=== PATIENT | male | born 1940 | race Caucasian/White ===

== ENCOUNTER 2022-01-30 12:14 | Observation (INO) | payer MEDICARE, BC ==
[2022-01-30 13:05] LABS: #Basophils 0.1 10x3/uL (0.0-0.2); #Eosinphils 0.4 10x3/uL (0.0-0.5); #Monocytes 0.8 10x3/uL (0.0-1.1); #Neutrophils 3.3 10x3/uL (1.5-8.4); %Basophils 1.2 % (0.0-2.0); %Eosinophils 6.2 % (0.0-6.0); %Lymphocytes 27.4 % (18.0-47.0); %Monocytes 13.1 % (0.0-10.0); %Neutrophils 51.8 % (40.0-75.0); Hemoglobin 12.7 g/dL (13.5-17.5); Mean Corpuscular Hemoglobin 30.4 pg (27.0-33.0); Mean Corpuscular Volume 89.2 fl (81.2-95.1); Mean Platelet Volume 10.7 fl (7.4-10.4); Platelet Count 238 10x3/uL (130-400); RBC Distribution Width 13.2 % (11.5-14.5); Red Blood Cell (RBC) Count 4.18 10x6/uL (4.32-5.72); White Blood Cell (WBC) Count 6.4 10x3/uL (3.5-10.5)
[2022-01-30 13:21] LABS: ALT (SGPT) 20 U/L (8-55); AST (SGOT) 21 U/L (5-34); Albumin 4.1 g/dL (3.4-4.8); Alkaline Phosphatase 49 U/L (40-110); Anion Gap 14 mmol/L (10-20); BUN (Urea Nitrogen) 23 mg/dL (8.4-25.7); Bilirubin, Total 0.6 mg/dL (0.2-1.2); Calc. Creatinine Clearance 0 mL/min (70-130); Calcium 9.5 mg/dL (7.8-10.44); Carbon Dioxide 24 mmol/L (23-31); Chloride 102 mmol/L (98-107); Estimated GFR 52; Globulin 2.6 g/dL (2.4-3.5); Glucose 96 mg/dL (83-110); Potassium 4.5 mmol/L (3.5-5.1); Protein, Total 6.7 g/dL (5.8-8.1); Sodium 135 mmol/L (136-145)
[2022-01-30 13:42] LABS: CKMB 2.5 ng/mL (0-6.6)
[2022-01-30 14:20] LABS: Magnesium 2.2 mg/dL (1.6-2.6)
[2022-01-30 15:40] LABS: Bilirubin Neg (Negative); Blood, Urine Negative (Negative); Clarity Clear (Clear); Glucose, Urine (Dipstick) Normal (Negative); Ketone, Urine Negative (Negative); Leukocyte Negative (Negative); Nitrite Negative (Negative); Protein, Urine (Dipstick) Negative (Neg-Trace); Specific Gravity, Urine 1.015 (1.005-1.030); Urobilinogen Normal mg/dL (Less than 2)
[2022-01-30] MEDS ORDERED: Ondansetron ODT 4 MG TAB PO PRN (15:53)
[2022-01-30] MEDS ORDERED: Ondansetron PF 4 MG/2 ML Vial IVP PRN (15:53)
[2022-01-30] MEDS ORDERED: Acetaminophen 325 MG TAB PO PRN (15:53)
[2022-01-30 16:14] LABS: Magnesium 2.2 mg/dL (1.6-2.6)
[2022-01-30] MEDS ORDERED: FLU VACC QS2022-23(65YR UP)/PF 240 MCG/0.7 ML SYRINGE IM ONE (20:30)
[2022-01-30] MEDS ORDERED: Sodium Chloride 0.9% 1,000 ML ONE (20:59)
[2022-01-30] MEDS ORDERED: Atorvastatin Calcium 20 MG TAB PO SCH (21:00)
[2022-01-30] MEDS: Sodium Chloride 0.9% 1,000 ML IV SCH (21:19)
[2022-01-31 03:20] VITALS: BMI 31.0
[2022-01-31 06:44] LABS: #Basophils 0.1 10x3/uL (0.0-0.2); #Eosinphils 0.4 10x3/uL (0.0-0.5); #Monocytes 0.7 10x3/uL (0.0-1.1); #Neutrophils 3.3 10x3/uL (1.5-8.4); %Basophils 0.9 % (0.0-2.0); %Eosinophils 6.7 % (0.0-6.0); %Lymphocytes 30.4 % (18.0-47.0); %Neutrophils 50.7 % (40.0-75.0); Hemoglobin 12.6 g/dL (13.5-17.5); Mean Corpuscular HGB CONC 34.1 g/dL (32.0-36.0); Mean Corpuscular Hemoglobin 30.7 pg (27.0-33.0); Mean Corpuscular Volume 89.8 fl (81.2-95.1); Mean Platelet Volume 11.4 fl (7.4-10.4); Platelet Count 244 10x3/uL (150-450); Red Blood Cell (RBC) Count 4.11 10x6/uL (4.32-5.72); White Blood Cell (WBC) Count 6.5 10x3/uL (3.5-10.5)
[2022-01-31 06:53] LABS: Anion Gap 12 mmol/L (10-20); BUN (Urea Nitrogen) 17 mg/dL (8.4-25.7); Calc. Creatinine Clearance 69 mL/min (70-130); Calcium 9.2 mg/dL (7.8-10.44); Carbon Dioxide 24 mmol/L (23-31); Chloride 108 mmol/L (98-107); Estimated GFR 58; Glucose 87 mg/dL (83-110); Potassium 4.3 mmol/L (3.5-5.1); Sodium 140 mmol/L (136-145)
[2022-01-31] MEDS ORDERED: hydrALAZINE 20 MG/ML VIAL SLOW IVP PRN (07:56)
[2022-01-31] MEDS ORDERED: hydrALAZINE 25 MG TAB PO SCH (09:00)
[2022-01-31] MEDS ORDERED: Finasteride 5 MG TAB PO SCH (09:00)
[2022-01-31] MEDS ORDERED: Lisinopril 20 MG TAB PO SCH (09:00)
[2022-01-31] MEDS ORDERED: Amlodipine 10 MG TAB PO SCH (09:00)
[2022-01-31] MEDS ORDERED: Aspirin 81 mg Enteric Coated Tablet PO SCH (09:00)
[2022-01-31] MEDS: Sodium Chloride 0.9% 1,000 ML IV SCH (11:06)
[2022-01-31 11:36] VITALS: BP 157/74; TEMP 97.8
== END 2022-01-31 12:00 | disposition home or self-care (01) ==
LOC: CSHERS 12:14 → CSHTELE 18:39
PROVIDERS: ADMIT Family Medicine; ATTEND Internal Medicine
DX: R55 Syncope and collapse (principal); R42 Dizziness and giddiness; R00.1 Bradycardia, unspecified; E78.5 Hyperlipidemia, unspecified; K21.9 Gastro-esophageal reflux disease without esophagitis; I12.9 Hypertensive chronic kidney disease with stage 1 through stage 4 chronic kidney disease, or unspecified chronic kidney disease; N18.9 Chronic kidney disease, unspecified; I25.10 Atherosclerotic heart disease of native coronary artery without angina pectoris; M10.9 Gout, unspecified; N40.0 Benign prostatic hyperplasia without lower urinary tract symptoms; Z79.82 Long term (current) use of aspirin; Z79.899 Other long term (current) drug therapy; Z95.5 Presence of coronary angioplasty implant and graft; Z98.890 Other specified postprocedural states; Z87.891 Personal history of nicotine dependence
CPT/HCPCS: 71045; 80048; 81003; 82553; 83605; 83735; 83880; 84484; 85025; 93005; 96360; 96361; 99285; G0378 ×3; U0003; U0005; 36415; 80053; 84443; J7050

== ENCOUNTER 2022-04-04 12:23 | Outpatient (CLI) | payer MEDICARE, BC ==
[2022-04-04 13:37] LABS: Hemoglobin 12.4 g/dL (13.5-17.5); Mean Corpuscular HGB CONC 33.6 g/dL (32.0-36.0); Mean Corpuscular Hemoglobin 30.1 pg (27.0-33.0); Mean Corpuscular Volume 89.6 fl (81.2-95.1); Mean Platelet Volume 10.3 fl (7.4-10.4); Platelet Count 345 10x3/uL (150-450); Red Blood Cell (RBC) Count 4.12 10x6/uL (4.32-5.72); White Blood Cell (WBC) Count 5.3 10x3/uL (3.5-10.5)
[2022-04-04 13:47] LABS: PTT 29.6 sec (22.0-33.0); Prothrombin Time 11.2 sec (9.5-12.1)
[2022-04-04 13:48] LABS: Anion Gap 12 mmol/L (10-20); BUN (Urea Nitrogen) 18 mg/dL (8.4-25.7); Calc. Creatinine Clearance 0 mL/min (70-130); Calcium 9.4 mg/dL (7.8-10.44); Carbon Dioxide 22 mmol/L (23-31); Chloride 103 mmol/L (98-107); Estimated GFR 58; Glucose 99 mg/dL (83-110); Potassium 4.4 mmol/L (3.5-5.1); Sodium 133 mmol/L (136-145)
== END 2022-04-04 12:24 | disposition home or self-care (01) ==
LOC: CSHLAB 12:23
PROVIDERS: ATTEND Specialist
DX: Z01.818 Encounter for other preprocedural examination (principal); I25.10 Atherosclerotic heart disease of native coronary artery without angina pectoris
CPT/HCPCS: 80048; 85027; 85610; 85730; 93005; 93010

== ENCOUNTER → 2022-04-06 | Day surgery (SDC) | payer MEDICARE, BC ==
[~2022-04-06] MED LIST: Acetylcysteine 800 MG/4 ML VIAL ONE; Adenosine 6 MG/2 ML VIAL ONE; Bivalirudin 250 MG VIAL ONE; Fentanyl 100 MCG/2 ML VIAL ONE; Heparin 10,000 UNITS/ 10 ML VIAL ONE; Iopamidol 300 61% 100 ML VIAL FS ONE; Lidocaine 1% (PF) 30 ML VIAL ONE; Midazolam HCl 2 mg/2 ml Vial ONE; Nitroglycerin 50 MG/250 ML BOT 250 ML ONE; Verapamil 5 MG/2 ML VIAL ONE
== END ==
LOC: CSHSDC 06:58
PROVIDERS: ATTEND Specialist
DX: I25.10 Atherosclerotic heart disease of native coronary artery without angina pectoris (principal); I25.5 Ischemic cardiomyopathy
CPT/HCPCS: 85347 ×2; 92921; 92978; 93454; C1725; C1753; C1760; C1769; C1874 ×2; C1887 ×2; C9600; 92928; 99152; 99153; J0153; J0583; J1644; J2001; J2250; J3010; Q9967

== ENCOUNTER 2022-07-02 22:43 | Inpatient (IN) | payer MEDICARE, BC ==
[2022-07-02 23:51] LABS: #Basophils 0.1 10x3/uL (0.0-0.2); #Eosinphils 0.6 10x3/uL (0.0-0.5); #Monocytes 0.6 10x3/uL (0.0-1.1); #Neutrophils 2.9 10x3/uL (1.5-8.4); %Basophils 1.3 % (0.0-2.0); %Eosinophils 10.8 % (0.0-6.0); %Lymphocytes 22.1 % (18.0-47.0); %Monocytes 11.7 % (0.0-10.0); %Neutrophils 53.9 % (40.0-75.0); Hemoglobin 12.8 g/dL (13.5-17.5); Mean Corpuscular HGB CONC 33.4 g/dL (32.0-36.0); Mean Corpuscular Hemoglobin 29.6 pg (27.0-33.0); Mean Corpuscular Volume 88.7 fl (81.2-95.1); Platelet Count 220 10x3/uL (150-450); RBC Distribution Width 14.6 % (11.5-14.5); Red Blood Cell (RBC) Count 4.32 10x6/uL (4.32-5.72); White Blood Cell (WBC) Count 5.4 10x3/uL (3.5-10.5)
[2022-07-03 00:01] LABS: ALT (SGPT) 17 U/L (8-55); AST (SGOT) 19 U/L (5-34); Albumin 3.9 g/dL (3.4-4.8); Alkaline Phosphatase 50 U/L (40-110); Anion Gap 14 mmol/L (10-20); BUN (Urea Nitrogen) 17 mg/dL (8.4-25.7); Bilirubin, Total 0.4 mg/dL (0.2-1.2); Calc. Creatinine Clearance 0 mL/min (70-130); Calcium 9.5 mg/dL (7.8-10.44); Carbon Dioxide 26 mmol/L (23-31); Chloride 103 mmol/L (98-107); Estimated GFR 55; Globulin 2.8 g/dL (2.4-3.5); Glucose 101 mg/dL (83-110); Potassium 4.5 mmol/L (3.5-5.1); Protein, Total 6.7 g/dL (5.8-8.1); Sodium 138 mmol/L (136-145)
[2022-07-03 00:03] LABS: INR-International Normal Ratio 1.1; PTT 28.4 sec (22.0-33.0); Prothrombin Time 11.4 sec (9.5-12.1)
[2022-07-03] MEDS ORDERED: Lidocaine Viscous Sol 2% 15 ml UD Cup ONE (00:22)
[2022-07-03] MEDS ORDERED: Ondansetron PF 4 MG/2 ML Vial IVP PRN (01:27)
[2022-07-03] MEDS ORDERED: Calcium Carbonate 500 MG ChewTAB PO PRN (01:27)
[2022-07-03] MEDS ORDERED: Guaifenesin DM 100-10/5 ML UDCUP PO PRN (01:27)
[2022-07-03] MEDS ORDERED: Senokot S 8.6-50 MG TAB PO PRN (01:27)
[2022-07-03] MEDS ORDERED: HYDROcodone/Acetaminophen 5/325 mg Tablet PO PRN (01:27)
[2022-07-03] MEDS ORDERED: Acetaminophen 325 MG TAB PO PRN (01:27)
[2022-07-03] MEDS ORDERED: Fluticasone Propionate Nasal Spray 16 gm Bottle NASAL PRN (01:30)
[2022-07-03] MEDS ORDERED: Oxybutynin 5 MG TAB PO PRN (01:35)
[2022-07-03] MEDS ORDERED: tiZANidine HCl 4 MG TAB PO SCH ×2 (02:30→21:00)
[2022-07-03 02:58] LABS: #Basophils 0.1 10x3/uL (0.0-0.2); #Eosinphils 0.5 10x3/uL (0.0-0.5); #Monocytes 0.6 10x3/uL (0.0-1.1); #Neutrophils 2.6 10x3/uL (1.5-8.4); %Eosinophils 9.1 % (0.0-6.0); %Neutrophils 50.7 % (40.0-75.0); Hemoglobin 11.7 g/dL (13.5-17.5); Mean Corpuscular HGB CONC 33.7 g/dL (32.0-36.0); Mean Corpuscular Hemoglobin 29.8 pg (27.0-33.0); Mean Corpuscular Volume 88.5 fl (81.2-95.1); Mean Platelet Volume 10.8 fl (7.4-10.4); Platelet Count 207 10x3/uL (150-450); RBC Distribution Width 14.6 % (11.5-14.5); Red Blood Cell (RBC) Count 3.92 10x6/uL (4.32-5.72); White Blood Cell (WBC) Count 5.1 10x3/uL (3.5-10.5)
[2022-07-03 03:11] LABS: Anion Gap 12 mmol/L (10-20); BUN (Urea Nitrogen) 19 mg/dL (8.4-25.7); Calc. Creatinine Clearance 0 mL/min (70-130); Calcium 8.8 mg/dL (7.8-10.44); Carbon Dioxide 24 mmol/L (23-31); Chloride 104 mmol/L (98-107); Estimated GFR 59; Glucose 127 mg/dL (83-110); Potassium 3.8 mmol/L (3.5-5.1); Sodium 136 mmol/L (136-145)
[2022-07-03] MEDS ORDERED: tiZANidine HCl 4 MG TAB PO PRN (04:57)
[2022-07-03 05:06] VITALS: BMI 31.4
[2022-07-03 06:27] LABS: Bilirubin Neg (Negative); Clarity Bloody (Clear); Glucose, Urine (Dipstick) Normal (Negative); Ketone, Urine Negative (Negative); Leukocyte 25 (Negative); Nitrite Negative (Negative); Protein, Urine (Dipstick) 30 mg/dl (Neg-Trace); Specific Gravity, Urine 1.005 (1.005-1.030); Urobilinogen Normal mg/dL (Less than 2)
[2022-07-03 06:28] LABS: Blood, Urine Large (Negative)
[2022-07-03 06:29] LABS: Bacteria/HPF None Seen HPF (None Seen); RBC/HPF Greater than 50 HPF (0-3); Squamous Epithelial 0-3 HPF (0-3)
[2022-07-03] MEDS ORDERED: Carvedilol 6.25 MG TAB PO SCH ×2 (08:00)
[2022-07-03] MEDS ORDERED: Tamsulosin HCl 0.4 MG CAP PO SCH (09:00)
[2022-07-03] MEDS ORDERED: Multivitamin W/ Minerals 1 TAB PO SCH (09:00)
[2022-07-03] MEDS ORDERED: Clopidogrel Bisulfate 75 MG TAB PO SCH (09:00)
[2022-07-03] MEDS ORDERED: Vit A,C & E/Lutein/Minerals Tablet PO SCH (09:00)
[2022-07-03] MEDS ORDERED: Cholecalciferol 1,000 UNITS (25 MCG) TAB PO SCH (09:00)
[2022-07-03] MEDS ORDERED: Finasteride 5 MG TAB PO SCH (09:00)
[2022-07-03] MEDS ORDERED: Sacubitril 49 MG/Valsartan 51 MG TABLET PO SCH (09:00)
[2022-07-03] MEDS ORDERED: VITAMIN E MIXED 100 UNIT PO SCH (09:00)
[2022-07-03] MEDS ORDERED: Sacubitril 24MG/Valsartan 26 MG TAB PO SCH (09:00)
[2022-07-03 09:16] LABS: #Basophils 0.1 10x3/uL (0.0-0.2); #Eosinphils 0.3 10x3/uL (0.0-0.5); #Monocytes 0.8 10x3/uL (0.0-1.1); #Neutrophils 4.8 10x3/uL (1.5-8.4); %Basophils 0.7 % (0.0-2.0); %Eosinophils 3.9 % (0.0-6.0); %Lymphocytes 18.3 % (18.0-47.0); %Monocytes 10.3 % (0.0-10.0); %Neutrophils 66.4 % (40.0-75.0); Hemoglobin 10.7 g/dL (13.5-17.5); Mean Corpuscular HGB CONC 32.8 g/dL (32.0-36.0); Mean Corpuscular Hemoglobin 29.5 pg (27.0-33.0); Mean Corpuscular Volume 89.8 fl (81.2-95.1); Mean Platelet Volume 10.8 fl (7.4-10.4); Platelet Count 198 10x3/uL (150-450); RBC Distribution Width 14.6 % (11.5-14.5); Red Blood Cell (RBC) Count 3.63 10x6/uL (4.32-5.72); White Blood Cell (WBC) Count 7.3 10x3/uL (3.5-10.5)
[2022-07-03 12:38] VITALS: BP 151/67; TEMP 98.6
[2022-07-03] MEDS ORDERED: Atorvastatin Calcium 20 MG TAB PO SCH (21:00)
[2022-07-03] MEDS ORDERED: Atorvastatin Calcium 40 MG TAB PO SCH (21:00)
== END 2022-07-03 12:34 | disposition short-term general hospital (02) | DRG 726 ==
LOC: CSHERS 22:43 → CSHTELE 07-03 04:54 → CSHICU 07-03 09:53
PROVIDERS: ADMIT Student in an Organized Health Care Education/Training Program; ATTEND Family Medicine
PROC: 0T9B70Z Drainage of Bladder with Drainage Device, Via Natural or Artificial Opening (ICD-10-PCS; principal; 2022-07-03)
DX: N40.1 Benign prostatic hyperplasia with lower urinary tract symptoms (principal); D62 Acute posthemorrhagic anemia; I50.20 Unspecified systolic (congestive) heart failure; I13.0 Hypertensive heart and chronic kidney disease with heart failure and stage 1 through stage 4 chronic kidney disease, or unspecified chronic kidney disease; E78.5 Hyperlipidemia, unspecified; I25.10 Atherosclerotic heart disease of native coronary artery without angina pectoris; N18.2 Chronic kidney disease, stage 2 (mild); R33.8 Other retention of urine; D63.1 Anemia in chronic kidney disease; G25.81 Restless legs syndrome; K21.9 Gastro-esophageal reflux disease without esophagitis; I25.5 Ischemic cardiomyopathy; Z79.82 Long term (current) use of aspirin; Z79.899 Other long term (current) drug therapy; Z79.01 Long term (current) use of anticoagulants; Z98.890 Other specified postprocedural states; Z95.5 Presence of coronary angioplasty implant and graft
CPT/HCPCS: 36415; 80048; 80053; 81003; 81015; 82553; 84443; 84484; 85025; 85610; 85730; 86850; 86900; 86901; 87086; 88112; 93005

== ENCOUNTER → 2022-10-15 | Day surgery (SDC) | payer MEDICARE, BC ==
[2022-10-05 16:05] LABS: Hemoglobin 10.8 g/dL (13.5-17.5); Mean Corpuscular HGB CONC 31.7 g/dL (32.0-36.0); Mean Corpuscular Hemoglobin 25.5 pg (27.0-33.0); Mean Corpuscular Volume 80.4 fl (81.2-95.1); Mean Platelet Volume 11.2 fl (7.4-10.4); Platelet Count 231 10x3/uL (150-450); RBC Distribution Width 15.8 % (11.5-14.5); Red Blood Cell (RBC) Count 4.24 10x6/uL (4.32-5.72); White Blood Cell (WBC) Count 5.1 10x3/uL (3.5-10.5)
[2022-10-05 16:23] LABS: Anion Gap 16 mmol/L (10-20); BUN (Urea Nitrogen) 23 mg/dL (8.4-25.7); Calc. Creatinine Clearance 0 mL/min (70-130); Calcium 9.3 mg/dL (7.8-10.44); Carbon Dioxide 20 mmol/L (23-31); Chloride 105 mmol/L (98-107); Estimated GFR 59; Glucose 87 mg/dL (83-110); Potassium 4.8 mmol/L (3.5-5.1); Sodium 136 mmol/L (136-145)
[~2022-10-15] MED LIST changes: -Acetylcysteine 800 MG/4 ML VIAL ONE; -Adenosine 6 MG/2 ML VIAL ONE; -Bivalirudin 250 MG VIAL ONE; +CEFAZOLIN 1 GM VIAL ONE; +Famotidine/PF 20 mg/2ml Vial ONE; +Gentamicin 80 MG/2 ML VIAL ONE; -Heparin 10,000 UNITS/ 10 ML VIAL ONE; -Midazolam HCl 2 mg/2 ml Vial ONE; -Nitroglycerin 50 MG/250 ML BOT 250 ML ONE; +Propofol 1,000 MG/100 ML VIAL IV ONE; +Vancomycin 1 GM VIAL ONE; +Vancomycin HCl 500 MG VIAL ONE; -Verapamil 5 MG/2 ML VIAL ONE
== END ==
LOC: CSHSDC 09:18
PROVIDERS: ATTEND Internal Medicine Cardiovascular Disease
DX: I44.7 Left bundle-branch block, unspecified (principal); R00.1 Bradycardia, unspecified; I11.0 Hypertensive heart disease with heart failure; I50.22 Chronic systolic (congestive) heart failure; R55 Syncope and collapse; I25.5 Ischemic cardiomyopathy; Z95.810 Presence of automatic (implantable) cardiac defibrillator; Z92.89 Personal history of other medical treatment; Z79.82 Long term (current) use of aspirin; Z79.899 Other long term (current) drug therapy; Z79.02 Long term (current) use of antithrombotics/antiplatelets
CPT/HCPCS: 33224; 71045; 80048; 85027; 85610; C1763; C1769 ×3; C1900; J0690; J1580; J2001; J2704; J3010; J3370; Q9967; S0028

== ENCOUNTER 2024-12-28 10:32 | Outpatient (CLI) | payer MEDICARE, BC ==
[~2024-12-28 10:32] MED LIST changes: -CEFAZOLIN 1 GM VIAL ONE; -Famotidine/PF 20 mg/2ml Vial ONE; -Fentanyl 100 MCG/2 ML VIAL ONE; -Gentamicin 80 MG/2 ML VIAL ONE; -Lidocaine 1% (PF) 30 ML VIAL ONE; -Propofol 1,000 MG/100 ML VIAL IV ONE; -Vancomycin 1 GM VIAL ONE; -Vancomycin HCl 500 MG VIAL ONE
[2024-12-28 11:46] LABS: Estimated GFR - POC 50.0
== END 2024-12-28 10:33 | disposition home or self-care (01) ==
LOC: CSHCT 10:32
PROVIDERS: ATTEND Otolaryngology Plastic Surgery within the Head & Neck
DX: C04.0 Malignant neoplasm of anterior floor of mouth (principal); J38.7 Other diseases of larynx; J39.2 Other diseases of pharynx
CPT/HCPCS: 36415; 70491; 71260; 82565; 84520